=== PATIENT | female | born 1965 | race Caucasian/White ===

== ENCOUNTER 2022-12-24 17:30 | Emergency (ER) | payer OTHER ==
[2022-12-24 17:42] VITALS: PULSE 73; RESP 18; TEMP 97.8; BMI 30.4
[2022-12-24 18:07] VITALS: BP 161/108
[2022-12-24 18:33] LABS: HEMATOCRIT 37.9 % (32.4-45.2); HEMOGLOBIN 12.5 G/dL (10.7-15.3); MCH 28.3 pg (25.7-33.7); MEAN CELL VOLUME 85.7 fl (80-96); MEAN PLT VOLUME 8.3 fl (7.5-11.1); PLATELET COUNT 244.9 10^3/uL (134-434); RBC 4.42 10^6/uL (3.60-5.2); RDW 14.7 % (11.6-15.6); WHITE BLOOD COUNT 4.2 10^3/uL (4.0-10.8)
[2022-12-24 18:51] LABS: ALBUMIN 4.1 g/dl (3.4-5.0); BILIRUBIN,TOTAL 0.4 mg/dl (0.2-1); BLOOD UREA NITROGEN 12.4 mg/dl (7-18); CALCIUM 9.2 mg/dl (8.5-10.1); MAGNESIUM 1.9 mg/dL (1.8-2.4); POTASSIUM 4.3 mmol/L (3.5-5.1); SGOT/AST 17.1 U/L (15-37); SGPT/ALT 26.1 U/L (7-52); TOT PROT 6.9 g/dl (6.4-8.2)
== END 2022-12-24 19:23 | disposition home or self-care (01) ==
LOC: FER 17:30
DX: R79.89 Other specified abnormal findings of blood chemistry (principal)
CPT/HCPCS: 36415; 71045-TC-FY; 80053; 83735; 84443; 84484; 85027; 93005

== ENCOUNTER 2023-09-16 15:55 | Emergency (ER) | payer OTHER ==
[2023-09-16 16:13] VITALS: RESP 18; TEMP 98.9; BMI 29.1
[2023-09-16] MEDS ORDERED: MECLIZINE HCL 25 MG TABLET (FP) ONE (17:32)
[2023-09-16] MEDS: MECLIZINE HCL 25 MG TABLET (FP) PO ONE (17:35)
[2023-09-16 17:51] LABS: HEMATOCRIT 39.3 % (32.4-45.2); HEMOGLOBIN 13.1 G/dL (10.7-15.3); MCH 28.3 pg (25.7-33.7); MCHC 33.4 g/dl (32.0-36.0); MEAN CELL VOLUME 84.6 fl (80-96); MEAN PLT VOLUME 8.7 fl (7.5-11.1); RBC 4.65 10^6/uL (3.60-5.2); RDW 15.5 % (11.6-15.6); WHITE BLOOD COUNT 5.5 10^3/uL (4.0-10.8)
[2023-09-16 17:54] LABS: ALBUMIN 4.3 g/dl (3.4-5.0); BILIRUBIN,TOTAL 0.4 mg/dl (0.2-1); CALCIUM 9.5 mg/dl (8.5-10.1); CREATININE 0.9 mg/dl (0.6-1.3); MAGNESIUM 1.9 mg/dL (1.8-2.4); POTASSIUM 3.7 mmol/L (3.5-5.1); TOT PROT 7.3 g/dl (6.4-8.2)
[2023-09-16 18:29] LABS: PLATELET ESTIMATE ADEQUATE
[2023-09-16 18:47] VITALS: BP 145/99; PULSE 68
== END 2023-09-16 18:50 | disposition home or self-care (01) ==
LOC: FER 15:55
PROC: 3E033GC Introduction of Other Therapeutic Substance into Peripheral Vein, Percutaneous Approach (ICD-10-PCS; principal; 2023-09-16)
DX: R42 Dizziness and giddiness (principal); R11.0 Nausea; R53.1 Weakness; Z20.822 Contact with and (suspected) exposure to COVID-19
CPT/HCPCS: 0241U-QW; 36415; 70450-TC; 80053; 81003; 81015; 83735; 85025; 87086; 93005; 99285-25